=== PATIENT | female | born 1950 ===

== ENCOUNTER 2023-04-15 07:45 | Outpatient (CLI) | payer OTHER | END 2023-04-15 07:47 | disposition home or self-care (01) | LOC: LAB 07:45 | PROVIDERS: ATTEND Specialist | DX: M79.601 Pain in right arm (principal); E03.9 Hypothyroidism, unspecified; E78.5 Hyperlipidemia, unspecified; E55.9 Vitamin D deficiency, unspecified; K76.89 Other specified diseases of liver ==

== ENCOUNTER 2023-04-15 10:29 | Outpatient (CLI) | payer OTHER | END 2023-04-15 11:13 | disposition home or self-care (01) | LOC: NUCLEAR 10:29 | PROVIDERS: ATTEND Specialist | DX: M81.0 Age-related osteoporosis without current pathological fracture (principal) ==

== ENCOUNTER → 2023-04-15 | Outpatient (CLI) | payer OTHER | END | disposition home or self-care (01) | LOC: RAD 08:09 | PROVIDERS: ATTEND Specialist | DX: Z12.31 Encounter for screening mammogram for malignant neoplasm of breast (principal); E04.1 Nontoxic single thyroid nodule; N64.9 Disorder of breast, unspecified; D86.0 Sarcoidosis of lung; M32.10 Systemic lupus erythematosus, organ or system involvement unspecified ==